=== PATIENT | male | born 1995 | race Caucasian/White ===

== ENCOUNTER 2016-06-22 02:53 | Emergency (ER) | payer BC ==
[2016-06-22] MEDS ORDERED: IBUPROFEN 400 MG TAB PO STA (03:11)
[2016-06-22] MEDS ORDERED: ONDANSETRON ODT 4 MG TAB PO STA (03:12)
--- NOTE | 2016-06-22 03:14 | ED ---
Fever HPI - General Chief Complaint: Fever Stated Complaint: FEVER Time Seen by Provider: 06/22/16 03:06 Source: patient, RN notes reviewed Mode of arrival: ambulatory Limitations: no limitations - History of Present Illness Initial Comments: 20-year-old male presents emergency Department chief complaint fever. Patient states that in the last 24 hours developed fever, body aches, chills and a dry cough. Patient states that he's had no sick contacts or recent traveling and no flu shot. Patient states that he did have recent episode of diarrhea and vomiting. Patient states she took 2 tablets of Tylenol at 2:00 and states that around midnight he attempted take ibuprofen though he vomited shortly after. He states he took 4 mg ibuprofen. Patient denies any abdominal pain this time. States he still feels slightly nauseated. Denies any neck pain or neck stiffness. He states he does have a headache, sore throat. - Related Data Previous Rx's Medication Instructions Recorded Oseltamivir [Tamiflu] 75 mg PO Q12HR #10 cap 06/22/16 Allergies Allergy/AdvReac Type Severity Reaction Status Date / Time No Known Allergies Allergy Verified 06/22/16 03:03 Review of Systems ROS Statement: Those systems with pertinent positive or pertinent negative responses have been documented in the HPI. ROS Other: All systems not noted in ROS Statement are negative. Past Medical History Past Medical History: No Reported History Additional Past Medical History / Comment(s): Hx. of Asthma as a child, has not had any problems since the age of 12. Was hospitalized this past summer from an infection post-op/ wisdom teeth. History of Any Multi-Drug Resistant Organisms: None Reported Additional Past Surgical History / Comment(s): wisdom teeth Past Anesthesia/Blood Transfusion Reactions: No Reported Reaction, Family History of Problems w/ Anesthesia Additional Past Anesthesia/Blood Transfusion Reaction / Comment(s): Mother has severe n/v from anesthesia. Past Psychological History: ADD/ADHD Smoking Status: Current every day smoker Past Alcohol Use History: Occasional Additional Past Alcohol Use History / Comment(s): Smokes 1 PPD x 3 yrs. Past Drug Use History: None Reported Additional Drug Use History / Comment(s): Smokes marijuana occ. - Past Family History Mother Family Medical History: Cancer Additional Family Medical History / Comment(s): Breast. General Exam Limitations: no limitations General appearance: alert, in no apparent distress Head exam: Present: atraumatic, normocephalic, normal inspection Eye exam: Present: normal appearance, PERRL, EOMI. Absent: scleral icterus, conjunctival injection, periorbital swelling ENT exam: Present: normal exam, normal oropharynx, mucous membranes moist, TM's normal bilaterally, normal external ear exam Neck exam: Present: normal inspection, full ROM. Absent: tenderness, meningismus, lymphadenopathy Respiratory exam: Present: normal lung sounds bilaterally. Absent: respiratory distress, wheezes, rales, rhonchi, stridor Cardiovascular Exam: Present: normal rhythm, tachycardia, normal heart sounds. Absent: systolic murmur, diastolic murmur, rubs, gallop, clicks GI/Abdominal exam: Present: soft, normal bowel sounds. Absent: distended, tenderness, guarding, rebound, rigid Neurological exam: Present: alert, oriented X3, CN II-XII intact Skin exam: Present: warm, dry, intact, normal color. Absent: rash Course Vital Signs 06/22/16 02:58 Temperature 103.1 F H Pulse Rate 130 H Respiratory 24 Rate Blood Pressure 119/57 O2 Sat by Pulse 96 Oximetry Medical Decision Making - Medical Decision Making 20-year-old male present emergency department for fever. Patient has influenza A. Patient be given Tamiflu. Return parameters were discussed. - Lab Data Lab Results 06/22/16 Range/Units 03:12 Influenza Type A RNA Detected A (Not Detectd) Influenza Type B (PCR) Not Detected (Not Detectd) Disposition Clinical Impression: Influenza A Disposition: HOME SELF-CARE Condition: Stable Instructions: Influenza (ED), Fever in Adults (ED) Additional Instructions: Please return to the Emergency Department if symptoms worsen or any other concerns. Prescriptions: Oseltamivir [Tamiflu] 75 mg PO Q12HR #10 cap Time of Disposition: 03:49
[2016-06-22] MEDS ORDERED: OSELTAMIVIR 75 MG CAP PO STA (03:47)
[2016-06-22] MEDS ORDERED: ONDANSETRON 4 MG ODT STARTER PACK 2 TAB BTL PO STA (03:47)
[2016-06-22 04:22] VITALS: BP 105/50; PULSE 125; RESP 18; TEMP 102.7
== END 2016-06-22 04:11 | disposition home or self-care (01) ==
LOC: EC 02:53
DX: J10.1 Influenza due to other identified influenza virus with other respiratory manifestations (principal); F17.200 Nicotine dependence, unspecified, uncomplicated
CPT/HCPCS: 87502; 99283; S0119

== ENCOUNTER 2017-02-09 14:00 | Emergency (ER) | payer BC ==
[2017-02-09 14:10] VITALS: TEMP 98.4
--- NOTE | 2017-02-09 14:56 | ED ---
General Adult HPI - General Chief complaint: Skin/Abscess/Foreign Body Stated complaint: cyst on tailbone Time Seen by Provider: 02/09/17 14:12 Source: patient, family, RN notes reviewed Mode of arrival: ambulatory Limitations: no limitations - History of Present Illness Initial comments: Chief complaint history of present illness is a 21-year-old male here with his mother. Patient reports for the past several days been developing Nikolay Idol infection. - Related Data Previous Rx's Medication Instructions Recorded Oseltamivir [Tamiflu] 75 mg PO Q12HR #10 cap 06/22/16 Cephalexin [Keflex] 500 mg PO Q6HR #28 cap 02/09/17 Allergies Allergy/AdvReac Type Severity Reaction Status Date / Time No Known Allergies Allergy Verified 02/09/17 14:07 Review of Systems ROS Statement: Those systems with pertinent positive or pertinent negative responses have been documented in the HPI. Review of systems no other complaints at this time other than discomfort to the pilonidal area. Patient denies ever having had a pilonidal abscess or cyst in the past. Past medical problems asthma as a child. Surgeries wisdom removal. Family history mother has breast cancer grandmother had breast cancer. Patient has does not have any ALLERGIES. He does smoke strongly encouraged to stop. ROS Other: All systems not noted in ROS Statement are negative. Past Medical History Past Medical History: No Reported History Additional Past Medical History / Comment(s): Hx. of Asthma as a child, has not had any problems since the age of 12. Was hospitalized this past summer from an infection post-op/ wisdom teeth. History of Any Multi-Drug Resistant Organisms: None Reported Additional Past Surgical History / Comment(s): wisdom teeth Past Anesthesia/Blood Transfusion Reactions: No Reported Reaction, Family History of Problems w/ Anesthesia Additional Past Anesthesia/Blood Transfusion Reaction / Comment(s): Mother has severe n/v from anesthesia. Past Psychological History: ADD/ADHD Smoking Status: Current every day smoker Past Alcohol Use History: Occasional Past Drug Use History: None Reported - Past Family History Mother Family Medical History: Cancer Additional Family Medical History / Comment(s): Breast. General Exam - General Exam Comments Initial Comments: Physical exam; pertinent to the patient's of visit is examination of the cleft above the buttocks. No fluctuant areas noted. No firmness there is what appears to be developing pilonidal infection. Nothing that can be drained at this time. She denies any other medical problems Patient's denying any headache no chest pain or shortness of breath no GI or problems. No neuro deficits. Vital signs temperature 98.4 pulse 124 as the patient is anxious. He was afraid it was cancer. The patient's respiratory rate 16 pulse ox 97% room air blood pressure 159/95. Limitations: no limitations Course Vital Signs 02/09/17 14:07 Temperature 98.4 F Pulse Rate 124 H Respiratory 16 Rate Blood Pressure 159/95 O2 Sat by Pulse 97 Oximetry Medical Decision Making - Medical Decision Making Medical decision making; the patient has developing pilonidal abscess or infection. The patient will be advised to use warm compresses be placed on cephalexin 500 4 times a day. Advised to make an appointment with his family physician for an incision and drainage naproxen for 5 days when this would normally come to the surface and can be drained. He cannot get in his to return emergency room. Advised to take Tylenol or ibuprofen for pain and/or fever. Disposition Clinical Impression: Pilonidal abscess Disposition: HOME SELF-CARE Condition: Stable Instructions: Pilonidal Cyst (ED) Additional Instructions: Apply warm compresses but not too hot this seemed to bring her skin. Take cephalexin 500 4 times a day. When the infection comes to a head that can be drained return emergency room or make an appointment with her family physician to have incision and drainage. Take Tylenol or ibuprofen for pain. Prescriptions: Cephalexin [Keflex] 500 mg PO Q6HR #28 cap Referrals: Cosmo Coy DO [Primary Care Provider] - 1-2 days Time of Disposition: 14:56
[2017-02-09 15:01] VITALS: BP 145/77; PULSE 102; RESP 18
== END 2017-02-09 15:00 | disposition home or self-care (01) ==
LOC: EC 14:00
DX: L05.01 Pilonidal cyst with abscess (principal); F17.200 Nicotine dependence, unspecified, uncomplicated
CPT/HCPCS: 99282

== ENCOUNTER → 2017-07-07 | Outpatient (CLI) | payer BC ==
--- NOTE | 2017-07-07 18:28 | US ---
EXAMINATION TYPE: US scrotum with doppler. Grayscale and color Doppler Duplex imaging performed of t he scrotum. DATE OF EXAM: 07/07/2017 COMPARISON: NONE CLINICAL HISTORY: Right Testicular Lump N50.819. EXAM MEASUREMENTS: TESTICLES: Right Testicle: 3.8 x 2.4 x 2.8 cm Left Testicle: 3.9 x 2.0 x 2.6 cm EPIDIDYMIS HEAD: Right Epididymis: small cyst measuring 0.3mm, 0.7 cm Left Epididymis: 0.6 cm Doppler performed to assess for testicular vascularity; good bilateral color flow and waveforms are s een. There is no evidence of testicular torsion. Presence of hydroceles: no Presence of varicoceles: no IMPRESSION: There is a very small right epididymal cyst. No evidence of testicular torsion or mass.
== END | disposition home or self-care (01) ==
LOC: RADUSWWP 16:27
PROVIDERS: ATTEND Family Medicine
DX: N50.3 Cyst of epididymis (principal); N50.819 Testicular pain, unspecified
CPT/HCPCS: 76870; 93975

== ENCOUNTER 2018-01-24 16:24 | Emergency (ER) | payer BC ==
--- NOTE | 2018-01-24 18:53 | ED ---
General Adult HPI - General Chief complaint: Headache Stated complaint: pain in jewish Source: patient Mode of arrival: ambulatory Limitations: no limitations - History of Present Illness Initial comments: Dictation was produced using [employer]™ dictation software. please excuse any grammatical, word or spelling errors. Chief Complaint: 22-year-old male presents with episodic headache that have been ongoing for 1 month. History of Present Illness: Patient states he's been getting these episodes of headaches. He states the headaches will last for several seconds and then hiwot. He would get these episodes approximately one time a day. Patient states that he has not been able to follow up with his primary care physician secondary to his job. He describes the headache as a sharp pain to bilateral temples which extends across the head. He denies any neuro deficits. Patient' s not having any difficulty walking. No sensory or motor deficits. Patient denies any medical problems. He has not been seen by a neurologist. The ROS documented in this emergency department record has been reviewed and confirmed by me. Those systems with pertinent positive or negative responses have been documented in the HPI. All other systems are other negative and/or noncontributory. - Related Data Previous Rx's Medication Instructions Recorded SUMAtriptan SUCCINATE [Imitrex] 25 mg PO ONCE PRN #20 tablet 01/24/18 Allergies Allergy/AdvReac Type Severity Reaction Status Date / Time No Known Allergies Allergy Verified 01/24/18 18:45 Review of Systems ROS Statement: Those systems with pertinent positive or pertinent negative responses have been documented in the HPI. ROS Other: All systems not noted in ROS Statement are negative. Past Medical History Past Medical History: No Reported History Additional Past Medical History / Comment(s): Hx. of Asthma as a child, has not had any problems since the age of 12. Was hospitalized this past summer from an infection post-op/ wisdom teeth. History of Any Multi-Drug Resistant Organisms: None Reported Additional Past Surgical History / Comment(s): wisdom teeth,pylenoidal cyst removal Past Anesthesia/Blood Transfusion Reactions: No Reported Reaction, Family History of Problems w/ Anesthesia Additional Past Anesthesia/Blood Transfusion Reaction / Comment(s): Mother has severe n/v from anesthesia. Past Psychological History: ADD/ADHD Smoking Status: Current every day smoker Past Alcohol Use History: Occasional Past Drug Use History: Marijuana - Past Family History Mother Family Medical History: Cancer Additional Family Medical History / Comment(s): Breast. General Exam - General Exam Comments Initial Comments: PHYSICAL EXAM: General Impression: Alert and oriented x3, not in acute distress HEENT: Normocephalic atraumatic, extra-ocular movements intact, pupils equal and reactive to light bilaterally, mucous membranes moist. Cardiovascular: Heart regular rate and rhythm, S1&S2 audible, no murmurs, rubs or gallops Chest: Lungs clear to auscultation bilaterally, no rhonchi, no wheeze, no rales Abdomen: Bowel sounds present, abdomen soft, non-tender, non-distended, no organomegaly Musculoskeletal: Pulses present and equal in all extremities, no peripheral edema Motor: Power 5/5 bilaterally, no focal deficits noted Neurological: CN II-XII grossly intact, no focal motor or sensory deficits noted Skin: Intact with no visualized rashes Psych: Normal affect and mood Limitations: no limitations Course Vital Signs 01/24/18 17:01 Temperature 98.6 F Pulse Rate 123 H Respiratory 18 Rate Blood Pressure 131/89 O2 Sat by Pulse 99 Oximetry Medical Decision Making - Medical Decision Making ED course: 22-year-old male presents with chief complaint of headache. He denies any headaches at this time. He states these episodes happen frequently. States they last for several seconds. Vital signs shows heart rate of 123. Repeat vital signs are within normal limits. Patient is well-appearing. No neurologic deficits. Rest of physical examination is unremarkable. Clinical presentation suspicious for emergent intracranial process. Discussed with patient that he needs to follow up with neurologist for outpatient management of headache. Patient given outpatient referral. Told to follow-up with his primary care physician as well. Patient given headache medications when necessary headache. Disposition Clinical Impression: Headache Disposition: HOME SELF-CARE Instructions: Acute Headache (ED) Prescriptions: SUMAtriptan SUCCINATE [Imitrex] 25 mg PO ONCE PRN #20 tablet PRN Reason: Headache Is patient prescribed a controlled substance at d/c from ED?: No Referrals: Cosmo Coy DO [Primary Care Provider] - 1-2 days Priyanka Longoria MD [STAFF PHYSICIAN] - 1-2 days Time of Disposition: 18:52
[2018-01-24 18:58] VITALS: BP 129/80; PULSE 96; RESP 16; TEMP 98.3
== END 2018-01-24 18:58 | disposition home or self-care (01) ==
LOC: EC 16:24
DX: R51 Headache (principal); F17.200 Nicotine dependence, unspecified, uncomplicated
CPT/HCPCS: 99283

== ENCOUNTER 2018-04-07 00:14 | Emergency (ER) | payer BC ==
[2018-04-07 00:43] VITALS: RESP 18
--- NOTE | 2018-04-07 01:16 | ED ---
General Adult HPI - General Chief complaint: Extremity Injury, Lower Stated complaint: Foot Injury-Appointment @ 0000 Time Seen by Provider: 04/07/18 00:51 Source: patient, RN notes reviewed Mode of arrival: ambulatory Limitations: no limitations - History of Present Illness Initial comments: 22-year-old male presents to the emergency department for a chief complaint of left ankle pain one day. Patient states he was at work when he was running outside and slipped on a rock. Patient states he has been ambulating on the left ankle but it is painful. Patient states he has been taking Motrin and Tylenol for pain. Patient states he wants to make sure his ankle is not broken. He denies any other injuries. He did not hit his head when he fell.Patient has no other complaints at this time including shortness of breath , chest pain, abdominal pain, nausea or vomiting, headache, or visual changes. - Related Data Previous Rx's Medication Instructions Recorded SUMAtriptan SUCCINATE [Imitrex] 25 mg PO ONCE PRN #20 tablet 01/24/18 Allergies Allergy/AdvReac Type Severity Reaction Status Date / Time No Known Allergies Allergy Verified 04/07/18 00:43 Review of Systems ROS Statement: Those systems with pertinent positive or pertinent negative responses have been documented in the HPI. ROS Other: All systems not noted in ROS Statement are negative. Past Medical History Past Medical History: No Reported History Additional Past Medical History / Comment(s): Hx. of Asthma as a child, has not had any problems since the age of 12. Was hospitalized this past summer from an infection post-op/ wisdom teeth. History of Any Multi-Drug Resistant Organisms: None Reported Additional Past Surgical History / Comment(s): wisdom teeth,pylenoidal cyst removal Past Anesthesia/Blood Transfusion Reactions: No Reported Reaction, Family History of Problems w/ Anesthesia Additional Past Anesthesia/Blood Transfusion Reaction / Comment(s): Mother has severe n/v from anesthesia. Past Psychological History: ADD/ADHD Smoking Status: Current every day smoker Past Alcohol Use History: Occasional Past Drug Use History: Marijuana - Past Family History Mother Family Medical History: Cancer Additional Family Medical History / Comment(s): Breast. General Exam Limitations: no limitations General appearance: alert, in no apparent distress Head exam: Present: atraumatic, normocephalic, normal inspection Eye exam: Present: normal appearance, PERRL, EOMI. Absent: scleral icterus, conjunctival injection, periorbital swelling ENT exam: Present: normal exam, mucous membranes moist Neck exam: Present: normal inspection, full ROM. Absent: tenderness, meningismus, lymphadenopathy Respiratory exam: Present: normal lung sounds bilaterally. Absent: respiratory distress, wheezes, rales, rhonchi, stridor Cardiovascular Exam: Present: regular rate, normal rhythm, normal heart sounds. Absent: systolic murmur, diastolic murmur, rubs, gallop, clicks Extremities exam: Present: tenderness (Tenderness over the left lateral malleolus), normal capillary refill (Capillary refill less than 2 seconds and DP pulse 2+ in the left lower extremity), joint swelling (Significant swelling noted to the left lateral malleolus with ecchymosis.). Absent: full ROM ( Patient has full dorsiflexion of the left ankle with limited plantar flexion and eversion.), calf tenderness Neurological exam: Present: alert, oriented X3, CN II-XII intact Psychiatric exam: Present: normal affect, normal mood Course Vital Signs 04/07/18 00:41 Temperature 98.3 F Pulse Rate 122 H Respiratory 18 Rate Blood Pressure 148/106 O2 Sat by Pulse 99 Oximetry Procedures - Procedures Initial comment: Neurovascular intact before splint application Indication: Left ankle pain Type: Posterior short leg Wounds: no abrasions or lacerations underneath splint Neurovascular status: patient has sensation and movement of digits extending outside the splint, there is no cyanosis, capillary refill < 2 seconds Follow-up: patient given number for orthopedics and instructed to phone to make an appointment. Patient aware she can return to the Emergency Department if any difficulties. Medical Decision Making - Medical Decision Making 22-year-old male presents to the emergency department for a chief complaint of left ankle pain times one day. Patient was out in the parking lot at work yesterday when he slipped on a rock. Patient has been amputating on the ankle since that time. On exam patient has significant edema and mild ecchymosis noted over the left lateral malleolus. Patient does have tenderness of the left lateral malleolus. No significant tenderness in the left foot.X-ray of the left ankle shows soft tissue swelling without fracture. X-ray of the left foot shows a negative exam. Patient likely has a sprain of the ankle. Due to swelling He will be splinted in a posterior short leg splint. He will follow up with orthopedics. He was educated on rice therapy, Motrin and Tylenol, and using crutches to remain nonweightbearing. He will return here to the emergency department if he has any worsening symptoms. Disposition Clinical Impression: Ankle pain Disposition: HOME SELF-CARE Condition: Good Instructions: Ankle Sprain (ED) Additional Instructions: Please take Motrin and Tylenol for pain. Rest ice and elevate the left ankle. Use crutches and remain nonweightbearing on the left ankle. Follow-up with orthopedics in one to 2 days. Return here to the emergency department if you have any worsening symptoms. Is patient prescribed a controlled substance at d/c from ED?: No Referrals: Cosmo Coy DO [Primary Care Provider] - 1-2 days Ashok Walter DO [Doctor of Osteopathic Medicine] - 1-2 days Time of Disposition: 02:07
--- NOTE | 2018-04-07 01:57 | XR ---
EXAMINATION TYPE: XR ankle complete LT DATE OF EXAM: 04/07/2018 COMPARISON: NONE HISTORY: Ankle pain TECHNIQUE: 3 views FINDINGS: There is soft tissue swelling over the lateral malleolus. Ankle mortise is anatomic. Joint spaces are normal. IMPRESSION: Soft tissue swelling. No fracture seen.
--- NOTE | 2018-04-07 01:58 | XR ---
EXAMINATION TYPE: XR foot complete LT DATE OF EXAM: 04/07/2018 COMPARISON: NONE HISTORY: Fall. Pain. TECHNIQUE: 3 views FINDINGS: Metatarsals are intact. I see no fracture nor dislocation. Joint spaces are normal. IMPRESSION: Negative left foot exam.
[2018-04-07 02:31] VITALS: BP 141/97; PULSE 78; TEMP 98.2
== END 2018-04-07 02:54 | disposition home or self-care (01) ==
LOC: EC 00:14
DX: S90.02XA Contusion of left ankle, initial encounter (principal); F17.200 Nicotine dependence, unspecified, uncomplicated; W01.0XXA Fall on same level from slipping, tripping and stumbling without subsequent striking against object, initial encounter; Y93.02 Activity, running; Y92.481 Parking lot as the place of occurrence of the external cause
CPT/HCPCS: 29515; 99283

== ENCOUNTER 2018-05-23 16:41 | Emergency (ER) | payer BC ==
[2018-05-23 17:03] VITALS: TEMP 98.9
--- NOTE | 2018-05-23 17:27 | XR ---
EXAMINATION TYPE: XR hand complete LT DATE OF EXAM: 05/23/2018 COMPARISON: NONE HISTORY: Pain TECHNIQUE: 3 views FINDINGS: I see no fracture nor dislocation. Metacarpals are intact. Joint spaces are normal. There a re no erosions. There are no pathologic calcifications. IMPRESSION: Negative left hand exam.
--- NOTE | 2018-05-23 17:49 | XR ---
EXAMINATION TYPE: XR foot complete RT DATE OF EXAM: 05/23/2018 COMPARISON: None HISTORY: Pain. TECHNIQUE: 3 views FINDINGS: Metatarsals appear intact. I see no fracture nor dislocation. Joint spaces are fairly normal. There are no erosions. IMPRESSION: Negative right foot exam.
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
[2018-05-23] MEDS ORDERED: KETOROLAC 30 MG/ML 1 ML VIAL IVP STA (19:16)
[2018-05-23 19:46] VITALS: BP 149/107; PULSE 98; RESP 16
== END 2018-05-23 19:40 | disposition home or self-care (01) ==
LOC: EC 16:41
DX: S00.83XA Contusion of other part of head, initial encounter (principal); S60.222A Contusion of left hand, initial encounter; S90.31XA Contusion of right foot, initial encounter; R40.2412 Glasgow coma scale score 13-15, at arrival to emergency department; F90.9 Attention-deficit hyperactivity disorder, unspecified type; F17.200 Nicotine dependence, unspecified, uncomplicated; Z79.899 Other long term (current) drug therapy; V59.40XA Driver of pick-up truck or van injured in collision with unspecified motor vehicles in traffic accident, initial encounter; Y92.410 Unspecified street and highway as the place of occurrence of the external cause
CPT/HCPCS: 72050; 73130; 73630; 71046; 70486; 70450; 99285; 96374; J1885

== ENCOUNTER → 2019-02-02 | Outpatient (CLI) | payer BC ==
--- NOTE | 2019-02-02 07:58 | CT ---
EXAMINATION TYPE: CT chest w con DATE OF EXAM: 02/02/2019 COMPARISON: None. HISTORY: Cough for [address] DLP: 658 mGycm Automated exposure control for dose reduction was used. CONTRAST: CT scan of the chest is performed with IV Contrast, patient injected with 100 ml mL of Isovue 300. FINDINGS: The lungs are clear. There is no significant axillary, mediastinal or hilar adenopathy. There is evidence of bilateral gynecomastia. There is no pleural or pericardial fluid. The heart is not enlarged. Visualized portions of the upper abdomen are unremarkable. IMPRESSION: 1. NO ACUTE INTRATHORACIC ABNORMALITY. 2. BILATERAL GYNECOMASTIA.
== END | disposition home or self-care (01) ==
LOC: RADCTMAIN 07:01
PROVIDERS: ATTEND Family Medicine
DX: N62 Hypertrophy of breast (principal)
CPT/HCPCS: 71260; Q9967

== ENCOUNTER → 2022-06-20 | Outpatient (CLI) | payer MEDICAID ==
--- NOTE | 2022-06-20 09:00 | US ---
EXAMINATION TYPE: US gallbladder DATE OF EXAM: 06/20/2022 COMPARISON: NONE CLINICAL HISTORY: R10.11 RIGHT UPPER QUADRANT PAIN. TECHNIQUE: Multiple sonographic images of the right upper quadrant are obtained. FINDINGS: EXAM MEASUREMENTS: Liver Length: 15.1 cm Gallbladder Wall: 0.2 cm CBD: 0.3 cm Right Kidney: 10.4 x 5.8 x 5.0 cm Pancreas: Tail obscured by overlying bowel gas Liver: wnl Gallbladder: wnl Evidence for sonographic Lo's sign: neg CBD: wnl Right Kidney: No hydronephrosis or masses seen The visualized portions of the pancreas are unremarkable. The tail is obscured by overlying bowel gas . The liver is unremarkable without evidence of focal lesion. Gallbladder is unremarkable without shefali dence of cholelithiasis, wall thickening, pericholecystic fluid. Common bile duct is within normal li mits. The right kidney is unremarkable without evidence of hydronephrosis, shadowing calculi, or cont our deforming solid mass. IMPRESSION: No acute process.
== END | disposition home or self-care (01) ==
LOC: RADUSWWP 07:45
PROVIDERS: ATTEND Family Medicine
DX: R10.11 Right upper quadrant pain (principal)
CPT/HCPCS: 76705

== ENCOUNTER → 2022-06-20 | Outpatient (CLI) | payer MEDICAID ==
--- NOTE | 2022-06-20 08:46 | XR ---
EXAMINATION TYPE: XR ribs RT DATE OF EXAM: 06/20/2022 COMPARISON: NONE HISTORY: Pain TECHNIQUE: 4 views submitted FINDINGS: Osseous structures intact. Visualized lung manzanares clear. No sizable pneumothorax or pleural effusion. IMPRESSION: No acute displaced rib fracture.
== END | disposition home or self-care (01) ==
LOC: RADXRMAIN 08:09
PROVIDERS: ATTEND Family Medicine
DX: R07.81 Pleurodynia (principal)

== ENCOUNTER 2022-08-16 06:25 | Day surgery (SDC) | payer MEDICAID ==
[2022-08-11 13:01] VITALS: BMI 32.3
[~2022-08-16 06:25] MED LIST: LACTATED RINGERS 1,000 ML IV SCH
[2022-08-16 07:07] VITALS: RESP 16; TEMP 97.6
[2022-08-16] MEDS ORDERED: LIDOCAINE 2% INJ 20 MG/ML (2 ML VIAL) ONE (07:16)
[2022-08-16] MEDS ORDERED: PROPOFOL 10 MG/ML 20 ML VIAL IV ONE (07:16)
--- NOTE | 2022-08-16 07:36 | P.PCN ---
Date of Procedure: 08/16/22 Procedure(s) Performed: Brief history: Patient is a pleasant 26-year-old white male scheduled for an elective upper endoscopy as well as colonoscopy as a part of evaluation of right upper quadrant abdominal pain and change in bowel habits for the last several months duration. Procedure performed: Esophagogastroduodenoscopywith biopsy Colonoscopy Preoperative diagnosis: Epigastric and right upper quadrant abdominal pain Change in bowel habits Anesthesia: MAC Procedure: After informed consent was obtained from the patient was brought into the endoscopy unit and IV sedation was administered by anesthesia under continuous monitoring. Initially upper endoscopy was done. The Olympus GF 160 video e ndoscope was inserted inserted into the mouth and esophagus intubated without any difficulty and was gradually advanced into the stomach and duodenum and carefully examined. The bulb and second part of the duodenum appeared normal.biopsies were done from the duodenum to rule out celiac disease. The scope was then withdrawn into the stomach adequately insufflated with air and upon careful examination the antrum Had mild gastritis and biopsies were done from this area. Mucosa of the body, cardia and fundus appeared normal. The scope was then withdrawn into the esophagus. The GE junction was located at 40 cm to the incisors. there were linear erosions in the distal esophagus consistent with LA grade B reflux esophagitis. Rest of the esophagus appeared normal. Patient tolerated the procedure well. At this time the patient continued to remain sedation. Initial digital rectal examination was normal. Olympus CF 160 video colonoscope was then inserted into the rectum and gradually advanced to the cecum without any difficulty. Careful examination was performed as the scope was gradually being withdrawn. The prep was excellent. The cecum, ascending colon, transverse colon, descending colon, sigmoid colon and rectum appeared normal. Retroflexion was performed in the rectum and no lesions were noted. Patient tolerated the procedure well. Impression: 1.Upper endoscopy revealed mild antral gastritis and LA grade B reflux esophagitis 2.Colonoscopy was within normal limits with no evidence of colorectal neoplasia Recommendations: Findings of this examination were discussed with the patient as well ashis family. He was advised to follow with the biopsy results. In the meantime increase omeprazole to 20 mg twice daily and follow antireflux measures. he was advised to follow with the office in 3-4 weeks.
[2022-08-16 07:56] VITALS: BP 122/86; PULSE 79
[2022-08-16] MEDS ORDERED: DICYCLOMINE 20 MG TAB PO STA (08:04)
== END 2022-08-16 08:20 | disposition home or self-care (01) ==
LOC: ORWHC2ENDO 06:25
PROVIDERS: ATTEND Internal Medicine Gastroenterology
DX: K21.00 Gastro-esophageal reflux disease with esophagitis, without bleeding (principal); K29.50 Unspecified chronic gastritis without bleeding; I10 Essential (primary) hypertension; J45.909 Unspecified asthma, uncomplicated; F17.290 Nicotine dependence, other tobacco product, uncomplicated; Z79.899 Other long term (current) drug therapy
CPT/HCPCS: 88305; 45378; 43239; J2704; J2001

== ENCOUNTER → 2023-01-09 | Outpatient (CLI) | payer MEDICAID ==
--- NOTE | 2023-01-09 09:17 | CT ---
EXAMINATION TYPE: CT neck chest w con DATE OF EXAM: 01/09/2023 COMPARISON: 02/02/2019 HISTORY: 27-year-old male R59.0, Swollen neck and upper chest area. TECHNIQUE: Contiguous axial scanning of the neck and chest performed with IV Contrast, patient inject ed with 100ml mL of Isovue 300. Coronal/sagittal reconstructions performed. CT DLP: 1794.7 mGycm Automated exposure control for dose reduction was used. FINDINGS: Neck: The thyroid, submandibular, and parotid glands appear satisfactory. Visualized intracranial structures, orbits and globes, and mastoid air cells appear clear. There is moderate to severe mucosal thickening scattered throughout the ethmoid air cells and mild wi thin the maxillary sinuses. Undulating nasal septum. Nasopharynx appears clear. Mild hypertrophy of the bilateral lingual and palatine tonsils. Epiglottis and prevertebral soft tissues appear satisfactory. Glottic and subglottic structures as well as the tracheal column appear clear. No cervical lymphadenopathy identified by CT size criteria. A few prominent but nonenlarged upper cer vical lymph nodes measure up to 1.1 cm. Slight reversal normal cervical lordosis probably positional. CHEST: Mild bilateral gynecomastia. Heart normal size without pericardial effusion. Aorta normal caliber wit h conventional arch vessel branching anatomy. No thoracic lymphadenopathy identified by CT size criteria. Very slight diffuse bronchial wall thickening may reflect bronchitis or asthma. No consolidation or p leural effusion. Visualized upper abdomen shows low attenuation of the hepatic parenchyma suggesting fatty infiltratio n. Bones: Normal variant sternal foramen. No osseous destructive process. IMPRESSION: 1. NO ABNORMAL LYMPHADENOPATHY IDENTIFIED IN THE NECK OR CHEST BY CT SIZE CRITERIA. IF THERE IS PERSI STENT CLINICAL CONCERN, THE EXAM CAN BE REVIEWED WITH DIRECTED ATTENTION. 2. MILD LINGUAL AND BILATERAL PALATINE TONSILLAR HYPERTROPHY. 3. INCIDENTAL: CORRELATE FOR UNDERLYING HEPATIC STEATOSIS.
== END | disposition home or self-care (01) ==
LOC: RADCTMAIN 07:52
PROVIDERS: ATTEND Internal Medicine Hematology & Oncology
DX: J35.1 Hypertrophy of tonsils (principal); R59.0 Localized enlarged lymph nodes
CPT/HCPCS: 70491; 71260; Q9967

== ENCOUNTER → 2024-08-05 | Outpatient (CLI) | payer BC ==
[2024-08-05 15:01] LABS: ALT 41 U/L (10-49); AST 30 U/L (14-35); Albumin 4.6 g/dL (3.8-4.9); Albumin/Globulin Ratio 1.59 Ratio (1.60-3.17); Alkaline Phosphatase 77 U/L (41-126); BUN/Creat Ratio 18.33 Ratio (12.00-20.00); Blood Urea Nitrogen 16.5 mg/dL (9.0-27.0); Calcium 9.8 mg/dL (8.7-10.3); Carbon Dioxide 25.4 mmol/L (21.6-31.8); Chloride 102 mmol/L (96-109); Globulin 2.9 g/dL (1.6-3.3); Glucose 107 mg/dL (70-110); Potassium 4.2 mmol/L (3.5-5.5); Sodium 139 mmol/L (135-145); Total Bilirubin 0.5 mg/dL (0.3-1.2); Total Protein 7.5 g/dL (6.2-8.2)
[2024-08-05 15:22] LABS: Basophils # (A) 0.07 X 10*3/uL (0.00-0.10); Eosinophils # (A) 0.19 X 10*3/uL (0.04-0.35); Eosinophils % (A) 2.6 %; HCT 47.6 % (39.6-50.0); HGB 16.6 g/dL (13.0-17.0); Lymphocytes # (A) 2.27 X 10*3/uL (0.90-5.00); Lymphocytes % (A) 30.9 %; MCH 33.3 pg (27.0-32.0); MCHC 34.9 g/dL (32.0-37.0); MCV 95.6 FL (80.0-97.0); Mean Platelet Volume 11.7 FL (9.5-12.2); Monocytes # (A) 0.61 X 10*3/uL (0.20-1.00); Monocytes % (A) 8.3 %; NRBC Per 100 WBC 0 X 10*3/uL (0.00-0.01); Neutrophils # (A) 4.18 X 10*3/uL (1.80-7.70); Neutrophils % (A) 56.9 %; Platelet Count 249 X 10*3/uL (140-440); RBC 4.98 X 10*6/uL (4.40-5.60); RDW 11.8 % (11.5-14.5); WBC 7.34 X 10*3/uL (4.50-10.00)
== END | disposition home or self-care (01) ==
LOC: LABWHC1 09:34
PROVIDERS: ATTEND Nurse Practitioner Family
DX: R74.8 Abnormal levels of other serum enzymes (principal)
CPT/HCPCS: 36415; 80053; 85025